=== PATIENT | male | born 1955 | race Caucasian/White ===

== ENCOUNTER 2019-07-23 08:27 | Emergency (ER) | payer OTHER ==
[~2019-07-23] VITALS: Ht 177.8 cm; Wt 77.3 kg
[2019-07-23 08:34] VITALS: Ht 177.8 cm; Wt 77.3 kg
[2019-07-23] MEDS ORDERED: ASPIRIN81 MG PO (08:35)
[2019-07-23] MEDS ORDERED: PROAIR HFA8.5 G1 (08:35)
[2019-07-23] MEDS ORDERED: OMEPRAZOLE20 M1 PO (08:35)
[2019-07-23] MEDS ORDERED: ULTRAM50 MG PO (08:36)
[2019-07-23] MEDS ORDERED: VITAMIN D5000 UNI3 PO (08:36)
[2019-07-23] MEDS ORDERED: FLOMAX0.4 MG PO (08:36)
[2019-07-23] MEDS ORDERED: ISOSORBIDE MONO30 M1 PO (08:37)
[2019-07-23] MEDS ORDERED: LIPITOR80 MG PO (08:37)
[2019-07-23] MEDS ORDERED: TOPROL XL50 MG PO (08:37)
[2019-07-23 08:58] LABS: HEMATOCRIT 39.6 % (42.0-54.0); HEMOGLOBIN 13.3 g/dL (13.5-17.5); MCH 32.4 pg (26.0-34.0); MCHC 33.6 g/dL (31.0-37.0); MCV 96.6 fL (80.0-100.0); MEAN PLATELET VOLUME 10.8 fL (7.4-10.4); NEUTROPHILS 70.1 % (40-80); PLATELET COUNT 245 10x3/uL (130-400); RDW 13.7 % (11.5-14.5)
[2019-07-23 09:06] LABS: APTT 26.4 SECONDS (22.8-39.4); INR 0.88 (0.85-1.17); PROTIME 11.9 SECONDS (11.6-15.0)
[2019-07-23 09:40] LABS: ANION GAP 13.6 mmol/L (8-16); CARBON DIOXIDE 26.5 mmol/L (21.0-32.0); CREATININE - SERUM 1.3 mg/dL (0.6-1.3); POTASSIUM - SERUM 4.1 mmol/L (3.5-5.1)
[2019-07-23 09:46] LABS: ALBUMIN 3.9 g/dL (3.4-5.0); BILIRUBIN - TOTAL 0.55 mg/dL (0.2-1.3); PROTEIN - SERUM 7.7 g/dL (6.4-8.2)
[2019-07-23] MEDS ORDERED: KEFLEX500 MG PO (10:12)
[2019-07-23 10:27] VITALS: BP 151/79
== END 2019-07-23 10:27 | disposition home or self-care (01) ==
LOC: D.ER 08:27
PROVIDERS: Family Medicine
DX: R07.0 Pain in throat (principal); R04.2 Hemoptysis; I10 Essential (primary) hypertension; Z72.0 Tobacco use; J39.2 Other diseases of pharynx